=== PATIENT | male | born 1955 | race Caucasian/White ===

== ENCOUNTER 2024-02-12 21:56 | Emergency (ER) | payer MEDICARE ==
[~2024-02-12] VITALS: Ht 177.8 cm; Wt 69.0 kg
[2024-02-12 22:22] VITALS: O2SAT 96
[2024-02-12 23:08] LABS: BASOPHILS % 0.3 % (0.0-2.0); EOSINOPHILS % 0.2 % (0.0-5.0); HEMATOCRIT. 40.7 % (42.0-52.0); HEMOGLOBIN. 13.9 g/dL (14.0-18.0); LYMPHOCYTES % 7.2 % (20.0-50.0); MEAN CORPUSCULAR HEMOGLOBIN 32.7 pg (28.0-32.0); MEAN CORPUSCULAR HGB CONC 34.1 g/dL (31.0-37.0); MEAN CORPUSCULAR VOLUME 95.8 fL (80.0-94.0); MEAN PLATELET VOLUME 7.3 fl (7.4-10.4); MONOCYTES % 4.8 % (2.0-8.0); NEUTROPHILS % 87.5 % (40.0-76.0); PLATELET 334 x1000/uL (130-400); RED BLOOD CELL COUNT 4.24 mill/uL (4.7-6.1); RED CELL DISTRIBUTION WIDTH 13.6 % (11.6-14.6); WHITE BLOOD COUNT 11.2 x1000/uL (4.5-11.0)
[2024-02-12 23:30] LABS: CARBON DIOXIDE 24 mEq/L (21-32); CHLORIDE 106 mEq/L (98-107); POTASSIUM 3.2 mEq/L (3.5-5.1); SODIUM 138 mEq/L (136-145)
[2024-02-12 23:31] LABS: CALCIUM 10.2 mg/dL (8.7-10.4)
[2024-02-12 23:36] LABS: CREATININE 1.4 mg/dL (0.6-1.3); GLUCOSE 117 mg/dL (70-105); UREA NITROGEN BLOOD 15 mg/dL (9-23)
[2024-02-12 23:37] LABS: TROPONIN I HIGH SENSITIVITY 24 ng/L (3.0-53)
[2024-02-13] MEDS ORDERED: POTASSIUM CHLORIDE 20MEQ/PACKET PO ONE (00:15)
[2024-02-13] MEDS: SODIUM CHLORIDE 0.9% 1,000 ML IV ONE (02:06)
[2024-02-13 02:23] VITALS: BP 118/76; PULSE 62; RESP 13; TEMP 98.2
[2024-02-13] MEDS: POTASSIUM CHLORIDE 20MEQ/PACKET PO NR (02:25)
[2024-02-14] MEDS ORDERED: IRBE75TA16 PO (18:58)
[2024-02-14] MEDS ORDERED: AMLO10TA80 PO (18:58)
[2024-02-14] MEDS ORDERED: INDA1.255 PO (18:58)
== END 2024-02-13 07:27 | disposition left against medical advice (07) ==
LOC: ER 21:56 → EDBEDREQTM 02-13 02:51 → EDBEDREQ 02-13 02:51 → ER 02-13 07:27
DX: I48.91 Unspecified atrial fibrillation (principal); I10 Essential (primary) hypertension; Z85.9 Personal history of malignant neoplasm, unspecified
CPT/HCPCS: 99285; 71045; 80048; 82962; 83880; 84443; 85025; 84484; 36415; 93005; 96360; J7030